=== PATIENT | female | born 1995 | race African-American/Black ===

== ENCOUNTER 2021-07-06 07:34 | Emergency (ER) | payer SELFPAY ==
[2021-07-06] MEDS ORDERED: Ondansetron ODT 4 MG TAB ONE (08:19)
[2021-07-06] MEDS ORDERED: Acetaminophen 500 MG TAB ONE (08:19)
[2021-07-06] MEDS ORDERED: Sucralfate 1 GM/10 ML UDCUP ONE (08:19)
[2021-07-06 12:16] LABS: SARS-CoV-2 PCR by NAA Not Detected (NotDetected)
== END 2021-07-06 08:56 | disposition home or self-care (01) ==
LOC: ERS 07:34
DX: B34.9 Viral infection, unspecified (principal); Z20.822 Contact with and (suspected) exposure to COVID-19; F17.210 Nicotine dependence, cigarettes, uncomplicated
CPT/HCPCS: 71045; 99283; Q0162; U0003; U0005